=== PATIENT | male | born 1980 ===

== ENCOUNTER 2019-03-11 08:12 | Day surgery (SDC) | payer OTHER ==
[~2019-03-11] VITALS: Ht 167.6 cm; Wt 127.0 kg
[2019-03-11] VITALS (10 sets, daily range): BP systolic 112–135; BP diastolic 62–97
--- NOTE | 2019-03-11 08:17 | Short Stay Surgery H&P ---
History of Present Illness History of Present Illness Chief Complaint Abdominal pains, Dysphagia, Rectal bleeding HPI Rafa Jerome Jr is a 38 year old male who was admitted on for Gerd, Abdominal Pain/rectal bleeding/GERDs Patient History PAST MEDICAL HISTORY: (1) Diabetes (2) Hyperlipidemia Review of Systems Cardiovascular: Reports: no symptoms Respiratory: Reports: no symptoms Skeletal: Reports: trauma Gastrointestinal: Reports: obesity, gastro esophageal reflux disease Genitourinary: Reports: no symptoms Neurologic: Reports: no symptoms Endocrine: Reports: diabetes - type 2 Hematologic: Reports: no symptoms Physical Exam Skin: normal HENT: normal Heart: normal Lungs: normal Abdomen: abnormal Extremities: normal Genitourinary: normal Plan Plan of Care Upper and lower GI endoscopies with biopsy. Preop Interventions None. Summary of Findings See the reports Attestation Are the patient's medical conditions optimized for surgery? Attestation Response: yes Jason Contreras MD Mar 11, 2019 08:17
--- NOTE | 2019-03-11 08:18 | Pre-Procedure Note/Attestation ---
Pre-Procedure Note/Attestation Complete Prior to Procedure Planned Procedure: left Procedure Narrative: Examination of the upper and lower GI tract via endoscopy. Indications for Procedure Pre-Operative Diagnosis: R/O Gastritis/Peptic Ulcer/Colitis/Hemorrhoids Attestation I attest that I discussed the nature of the procedure; its benefits; risks and complications; and alternatives (and the risks and benefits of such alternatives ), prior to the procedure, with the patient (or the patient's legal sales representative printing). I attest that, if there was a reasonable possibility of needing a blood transfusion, the patient (or the patient's legal sales representative printing) was given the [facility] standardized written summary, pursuant to the [place] Blood Safety Act ([place] Health and Safety Code # 1645, as amended). I attest that I re-evaluated the patient just prior to the surgery and that there has been no change in the patient's H&P, except as documented below: Jason Contreras MD Mar 11, 2019 08:18
--- NOTE | 2019-03-11 08:31 | Anethesia Preoperative Eval ---
Anesthesia Pre-op PMH/ROS General Date of Evaluation: Mar 11, 2019 Time of Evaluation: 08:27 Anesthesiologist: renuka ASA Score: ASA 3 Mallampati Score Class I : Soft palate, uvula, fauces, pillars visible Class II: Soft palate, uvula, fauces visible Class III: Soft palate, base of uvula visible Class IV: Only hard plate visible Mallampati Classification: Class II Surgeon: nanda Diagnosis: gerd, abdominal pain Surgical Procedure: egd/colonoscopy Anesthesia History: none Social History: current smoker Family History: no anesthesia problems Allergies: Coded Allergies: No Known Allergies (Unverified , 03/11/19) Medications: see eMAR Patient NPO?: Yes Past Medical History Cardiovascular: Reports: HTN, other - hyperlipidemia, angina Pulmonary: Reports: VAL Gastrointestinal/Genitourinary: Reports: GERD Endocrine: Reports: DM Musculoskeletal/Integumentary: Reports: other - back injury, back pain Other: obesity Anesthesia Pre-op Phys. Exam Physician Exam Constitutional: NAD Neurologic: CN 2-12 intact Cardiovascular: RRR Respiratory: CTA Gastrointestinal: S/NT/ND Airway Exam Mallampati Score: Class II MO: limited Neck: short TMD: 2fb ROM: limited Anesthesia Pre-op A/P Risk Assessment & Plan Assessment: asa3 Plan: mac Status Change Before Surgery: No Pre-Antibiotics Drug: Ariana Brian MD Mar 11, 2019 08:31
[2019-03-11] MEDS ORDERED: LR 1000ml ONE (09:00)
[2019-03-11] MEDS ORDERED: Lidocaine 1% MPF 10mg/ml 5ml ONE (09:00)
[2019-03-11] MEDS ORDERED: Propofol 200mg/20ml IV ONE (09:00)
[2019-03-11] MEDS ORDERED: OMEPRAZOLE40 M1 ORAL (09:05)
[2019-03-11] MEDS ORDERED: ACTOS30 MG ORAL (09:05)
[2019-03-11] MEDS ORDERED: ATORVASTATIN CA40 MG ORAL (09:05)
--- NOTE | 2019-03-11 09:34 | Endoscopy Procedure Note ---
Endoscopy Procedure Note General Indication for Procedure: Abdominal pains, GERDs,Dysphagia and rectal bleedings Procedures Performed: EGD - Completely normal upper GI. endoscopy. Biopsied were obtained from gastric body and antrum per random., colonoscopy - Minimal hemorrhoids, otherwise completely normal total colonoscopy upto the base of the cecum. Specimen: yes Pt Tolerated Procedure Well: Yes Estimated Blood Loss: none Anesthesia Anesthesiologist: Dr. Leyva Anesthesia: moderate sedation Medications Medication Given: see anesthesia record Inserted Devices Implant(s) used?: No Quality Quality of Bowel Preparation: Good Did scope reach the cecum?: Yes Was there any complications?: No GI Core Measures 50 yrs or older w/o bx or poly: No 10yrs. F/U recommended: Yes If not recommended, why?: <3yrs. since last colonoscopy: No Med reason:<3 yrs.: System Reason:<3 yrs.: Last colonoscopy >= to 3yrs: Yes Jason Contreras MD Mar 11, 2019 09:34
--- NOTE | 2019-03-11 09:36 | Discharge Instructions ---
Discharge Instructions Discharge Instructions Follow up with: See the doctor by appontment in the office nafter 2 weeks For Congestive Heart Failure Reminder Report to your physician any weight gain of 5 pounds or more in one week. Jason Contreras MD Mar 11, 2019 09:36
[2019-03-11] MEDS ORDERED: LR 1000ml 1,000 ML IVLG SCH (10:24)
--- NOTE | 2019-03-11 10:25 | Immediate Post-Op Evaluation ---
Immediate Post-Op Evalulation Immediate Post-Op Evalulation Procedure: egd/colonoscopy w/bx Date of Evaluation: Mar 11, 2019 Time of Evaluation: 08:50 IV Fluids: 450ml lr Blood Products: none Estimated Blood Loss: negligible Blood Pressure Systolic: 117 Blood Pressure Diastolic: 73 Pulse Rate: 73 Respiratory Rate: 18 O2 Sat by Pulse Oximetry: 99 Temperature (Fahrenheit): 97.3 Pain Score (1-10): 0 Nausea: No Vomiting: No Complications none Patient Status: awake, reacts, patent Hydration Status: adequate Drug: Ariana Brian MD Mar 11, 2019 10:25
--- NOTE | 2019-03-11 10:26 | 48 Hour Post Anesthesia Eval ---
Post Anesthesia Evaluation Procedure: egd/colonoscopy w/bx Date of Evaluation: Mar 11, 2019 Time of Evaluation: 09:52 Blood Pressure Systolic: 129 0: 70 Pulse Rate: 71 Respiratory Rate: 18 Temperature (Fahrenheit): 97.3 O2 Sat by Pulse Oximetry: 99 Airway: patent Nausea: No Vomiting: No Pain Intensity: 0 Cardiopulmonary Status: stable Mental Status/LOC: patient returned to baseline Post-Anesthesia Complications: none Follow-up care needed: N/A Ariana Leyva MD Mar 11, 2019 10:25
[2019-03-11] MEDS ORDERED: fentaNYL 100 mcg/2 mL IV PRN (10:30)
[2019-03-11] MEDS ORDERED: Midazolam 2mg/2ml Inj IVP PRN (10:30)
[2019-03-11] MEDS ORDERED: DiphenhydrAMINE 50mg/ml Inj IVP PRN (10:30)
[2019-03-11] MEDS ORDERED: Atropine Inj 1mg/10ml Syr IV PRN (10:30)
--- NOTE | 2019-03-11 15:45 | Operative Note - Dictated ---
DATE OF OPERATION: 03/11/2019 SURGEON: Jason Contreras M.D. PROCEDURE: Esophagogastroduodenoscopy with biopsy. PREOPERATIVE DIAGNOSIS: Abdominal pain and dysphagia, rule out gastritis, esophagitis, NSAID-induced gastropathy. POSTOPERATIVE DIAGNOSIS: Completely normal upper GI endoscopy. Biopsies were taken per random from gastric body and antral area. MEDICATION USED: Per Dr. Patino, anesthesiologist. INSTRUMENT: GIF Olympus upper GI video endoscope. DESCRIPTION OF PROCEDURE: The patient after arriving at the endoscopy unit, was told about risks and benefits of the procedure, which he accepted and signed informed consent. At this time, he was put in the left lateral decubitus position. After adequate IV sedation, the scope was gently passed through the cricopharyngeal area, was lodged into the upper esophagus and gradually advanced towards gastroesophageal junction. The entire length of the esophagus looked normal and there was no evidence of any abnormality such as esophagitis, ulceration, exudative process, etc. GE junction also looked normal. At this time, the scope was advanced into the stomach. Gastric cavity was distended with insufflation of air and gradually the areas of the fundus and the body and the antrum were examined, which revealed to be completely normal without any evidence of mucosal abnormality such as gastritis and no ulcer was found. There was no polyps or tumors. At this time, the scope was retroflexed and the area of the gastroesophageal junction was examined in a closer fashion, which revealed completely normal. At this time, the scope was gradually passed into the antrum, introduced into the pyloric channel. First and second portion of duodenum were found to be completely normal. Finally, after obtaining the biopsies, the scope was pulled out and procedure was terminated. The patient tolerated the procedure well and left the endoscopy room in a good condition. Jason Contreras M.D. DR: SHAWN JOB#: [id number] CC:
--- NOTE | 2019-03-11 16:00 | Operative Note - Dictated ---
DATE OF OPERATION: 03/11/2019 SURGEON: Jason Contreras M.D. PROCEDURE: Total colonoscopy. PREOPERATIVE DIAGNOSIS: History of abdominal pain and rectal bleeding. POSTOPERATIVE DIAGNOSIS: Evidence of minimal internal hemorrhoids. Otherwise, completely normal total colonoscopy up to the base of the cecum as examined. MEDICATION USED: Per Dr. Patino, anesthesiologist. INSTRUMENT: GIF Olympus video colonoscope. DESCRIPTION OF PROCEDURE: The patient after arriving at the endoscopy unit, was told about risks and benefits of the procedure, which he accepted and signed informed consent. He was then put on the left lateral decubitus position. After adequate IV sedation, the scope was gently passed through the anal area and careful examination of this section including the retroflexion maneuver, which was applied revealed evidence of minimal internal hemorrhoid, but they were not friable at this time. There was no any other abnormalities in the rectum. At this time, the scope was gradually passed through the left descending colon reaching to the splenic flexure, transverse colon, and finally was guided into the right colon all the way to the base of the cecum. All these areas also remained to be completely normal without any evidence of pathology. The scope at this time was gradually pulled out within 7 minutes and the areas of the colon was re-examined, which revealed no other abnormalities as I mentioned. The colon cleanup was adequate. The patient tolerated the procedure well and left the endoscopy room in a good condition. Jason Contreras M.D. DR: SHAWN JOB#: [id number] CC:
--- NOTE | 2019-03-11 16:45 | Pre-op HX & Phy Repo 2 SIG ---
DATE OF ADMISSION: 03/11/2019 HISTORY AND PHYSICAL PREOPERATIVE EVALUATION HISTORY OF PRESENT ILLNESS: The patient is being seen prior to undergoing the procedures of upper and lower GI endoscopy for which he has been scheduled to receive for evaluation of his gastrointestinal conditions that he has developed subsequent to his work injury. The patient basically is complaining of experiencing pain over the upper part of his abdomen mostly in the epigastric area, which occasionally radiates towards his chest. These pains are also intermittent in nature and aggravated by the food, mostly spicy ones. He also reports that the intensity of this pain is moderate and usually they lasts about 30 minutes at times. As such he does have moderate heartburn for which he has been prescribed medications such as omeprazole that he takes 40 mg on a daily basis. 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 He reports that subsequent to taking these medications, he started to experience GI symptoms. It is also important to mention that he does have periods of rectal bleeding for which he has not been evaluated yet and this obviously has happened subsequent to his work injury. He also complains of difficulty swallowing intermittently consistent with dysphagia as well. Again it is important to mention that he denies having had any gastrointestinal conditions before being injured at job site. PAST MEDICAL HISTORY: The applicant has had history of hyperlipidemia, diabetes, hypertension, and obviously significant obesity. SURGICAL HISTORY: None. ALLERGIES: He denies having any allergies. CHILDHOOD DISEASES: As usual. HABITS: He reports that he drinks occasionally and smokes cigarettes rarely, but in the past he was alcohol drinker, mostly beer as well. MEDICATIONS: Currently taking atorvastatin, omeprazole, and pioglitazone. REVIEW OF SYSTEMS: Basically history of present illness. PHYSICAL EXAMINATION: GENERAL: At this time reveals alert, well-oriented, very pleasant, but obese gentleman, who does not seem to be in any acute distress. He answers the questions quite properly. VITAL SIGNS: Blood pressure 133/97, respiratory rate 15 per minute, pulse rate 76 per minute, oxygen saturation 96%. HEENT: Normocephalic. Pupils equal in size and reactive to light and accommodation. No visible jaundice. Buccal cavity, tongue midline, well hydrated. No ulcers. NECK: Supple. No JVD, thyromegaly, or adenopathy. CHEST: Clear to auscultation and percussion. No rales or rhonchi. HEART: S1, S2 normal. Regular rhythm. No gallops or murmur. ABDOMEN: Soft, but quite obese. There are areas of some tenderness over the upper part of the abdomen, but not that significant. There is no hepatosplenomegaly. Bowel sounds are present. No masses noted. No percussion tenderness or rebound. EXTREMITIES: Within normal limits. CENTRAL NERVOUS SYSTEM: Within normal limits. PRELIMINARY PREOPERATIVE IMPRESSION: 1. Abdominal pain of uncertain etiology, rule out NSAID induced gastropathy, rule out peptic ulcer disease, gastritis. 2. Dysphagia of uncertain etiology, possibly secondary gastroesophageal acid reflux, GERD, rule out esophagitis. 3. History of rectal bleeding, possibly secondary to internal hemorrhoids, rule out colitis versus polyps, tumors, etc. 4. History of bodily injury work related. 5. Hypertension, morbid obesity, hypercholesterolemia, and diabetes. At this time, the patient seems to be quite stable to undergo the procedures of upper and lower GI endoscopy for which he has been scheduled. He understands the risks and benefits and will sign this informed consent. Said Justo Contreras DR: ELSA JOB#: [id number] CC:
== END 2019-03-11 10:50 | disposition home or self-care (01) ==
LOC: GAS 08:12
DX: R10.9 Unspecified abdominal pain (principal); K64.8 Other hemorrhoids; K21.9 Gastro-esophageal reflux disease without esophagitis; R13.10 Dysphagia, unspecified; I10 Essential (primary) hypertension; E66.01 Morbid (severe) obesity due to excess calories; E78.00 Pure hypercholesterolemia, unspecified; E11.9 Type 2 diabetes mellitus without complications; E78.5 Hyperlipidemia, unspecified; F17.210 Nicotine dependence, cigarettes, uncomplicated; Z79.899 Other long term (current) drug therapy; Z68.42 Body mass index [BMI] 45.0-49.9, adult; G47.33 Obstructive sleep apnea (adult) (pediatric); K29.50 Unspecified chronic gastritis without bleeding
CPT/HCPCS: 43239; 45378; 82962; J0360; J2704; 94003; 94150